=== PATIENT | male | born 1950 | race African-American/Black ===

== ENCOUNTER 2020-03-26 11:39 | Emergency (ER) | payer OTHER ==
[~2020-03-26] VITALS: Ht 185.4 cm; Wt 61.2 kg
[2020-03-26] MEDS ORDERED: ONDANSETRON HCL 4 MG/2 ML VIAL IV ONE (12:15)
[2020-03-26] MEDS ORDERED: MORPHINE SULFATE 4 MG/ML SYR/VIAL IV ONE (12:15)
[2020-03-26 12:36] LABS: Basophils # (auto) 0 10 ^3/uL (0-0.2); Basophils % (auto) 0.4 % (0.0-2.0); Eosinophils # (auto) 0.1 10 ^3/uL (0-0.8); Hematocrit 44.3 % (41.0-53.0); Hemoglobin 15.2 g/dL (13.5-17.5); Lymphocytes # (auto) 1.1 10 ^3/uL (0.4-5.4); Lymphocytes % (auto) 17.2 % (10.0-50.0); Mean Corpuscular Hemoglobin 33.6 pg (28.0-32.0); Mean Corpuscular Hgb Conc. 34.3 g/dL (32.0-36.0); Mean Corpuscular Volume 97.9 fL (80.0-100.0); Monocytes # (auto) 0.4 10 ^3/uL (0-1.3); Monocytes % (auto) 5.9 % (0.0-12.0); Neutrophils # (auto) 4.7 10 ^3/uL (1.6-8.6); Neutrophils % (auto) 75.5 % (37.0-80.0); Platelet Count (auto) 159 10^3/uL (140-450); Red Blood Cells 4.53 10^6/uL (4.5-5.90); Red Cell Distribution Width 13.1 % (11.8-14.3); White Blood Cell 6.2 10^3/uL (4.4-10.8)
[2020-03-26 12:54] LABS: Chloride 104 mmol/L (98-107); Potassium 4.1 mmol/L (3.5-5.1); Sodium 139 mmol/L (136-145)
[2020-03-26 16:16] LABS: Anion Gap 7 (5-15); Carbon Dioxide 28 mmol/L (21-32); Glucose 84 mg/dL (74-106)
[2020-03-26 16:17] LABS: Alanine Aminotransferase 36 U/L (16-61); Alkaline Phosphatase 44 U/L (45-117); Aspartate Aminotransferase 22 U/L (15-37); BUN/Creatinine Ratio 17.1; Blood Urea Nitrogen 13 mg/dL (7-18); GFR African American 131 mL/min; GFR Non-African American 108 mL/min
[2020-03-26 16:18] LABS: Bilirubin, Total 0.4 mg/dL (0.2-1.0); Calcium 7.9 mg/dL (8.5-10.1); Total Protein 7.3 g/dL (6.4-8.2)
[2020-03-26 16:19] LABS: Albumin 3.6 g/dL (3.4-5.0); Magnesium 2.5 mg/dL (1.6-2.6)
[2020-03-26 18:03] VITALS: BP 118/59
== END 2020-03-26 18:34 | disposition short-term general hospital (02) ==
LOC: ER 11:39 → EDBD 11:39 → ER 18:34
DX: R07.89 Other chest pain (principal); R05 Cough; R06.02 Shortness of breath; I25.2 Old myocardial infarction; Z88.0 Allergy status to penicillin; Z91.041 Radiographic dye allergy status
CPT/HCPCS: 36415; 71045; 80053; 83735; 83880; 84484; 85025; 93005